=== PATIENT | male | born 1935 | race Caucasian/White ===

== ENCOUNTER 2021-04-25 15:29 | Inpatient (IN) | payer OTHER, MEDICARE ==
[~2021-04-25 15:29] MED LIST: Iopamidol-370 76% 500 ML 1 ML ONE
[2021-04-25] MEDS ORDERED: Fentanyl 100 MCG/2 ML VIAL ONE (15:42)
[2021-04-25] MEDS ORDERED: Ondansetron PF 4 MG/2 ML Vial ONE (15:42)
[2021-04-25 16:01] LABS: #Eosinphils 0.2 thou/uL (0.0-0.7); #Lymphocytes 1.1 thou/uL (1.20-3.40); #Monocytes 0.6 thou/uL (0.11-0.59); %Basophils 0.4 % (0.0-1.0); %Eosinophils 3.1 % (0.0-10.0); %Lymphocytes 16.1 % (21.0-51.0); %Monocytes 8.1 % (0.0-10.0); %Neutrophils 72.3 % (42.0-75.0); Mean Corpuscular HGB CONC 32.9 g/dL (32.0-36.0); Mean Corpuscular Hemoglobin 30.8 pg (27.0-31.0); Mean Corpuscular Volume 93.5 fL (78.0-98.0); Mean Platelet Volume 9.5 fL (7.4-10.4); Platelet Count 129 thou/uL (130-400); RBC Distribution Width 12.9 % (11.5-14.5); Red Blood Cell (RBC) Count 3.91 mill/uL (4.70-6.10); White Blood Cell (WBC) Count 6.9 thou/uL (4.8-10.8)
[2021-04-25 16:13] LABS: INR-International Normal Ratio 2.3; PTT 39.5 sec (22.9-36.1); Prothrombin Time 25.8 sec (12.0-14.7)
[2021-04-25 16:30] LABS: ALT (SGPT) 10 U/L (8-55); AST (SGOT) 18 U/L (5-34); Albumin 3.6 g/dL (3.4-4.8); Alkaline Phosphatase 92 U/L (40-110); Anion Gap 13 mmol/L (10-20); BUN (Urea Nitrogen) 23 mg/dL (8.4-25.7); Bilirubin, Total 0.6 mg/dL (0.2-1.2); Calc. Creatinine Clearance 0 mL/min (70-130); Carbon Dioxide 30 mmol/L (23-31); Chloride 105 mmol/L (98-107); Globulin 2.9 g/dL (2.4-3.5); Glucose 109 mg/dL (83-110); Potassium 3.7 mmol/L (3.5-5.1); Protein, Total 6.5 g/dL (5.8-8.1); Sodium 144 mmol/L (136-145)
[2021-04-25] MEDS ORDERED: Acetaminophen 500 MG TAB ONE (18:08)
[2021-04-25] MEDS ORDERED: Ketorolac Tromethamine 30 MG/ML VIAL ONE (18:08)
[2021-04-25] MEDS ORDERED: Morphine 4 MG/ML VIAL ONE (18:08)
[2021-04-25] MEDS ORDERED: hydrALAZINE 20 MG/ML VIAL SLOW IVP PRN (18:41)
[2021-04-25] MEDS ORDERED: Dextrose 5% in Water 1,000 ML IV PRN (18:41)
[2021-04-25] MEDS ORDERED: Ondansetron PF 4 MG/2 ML Vial IVP PRN (18:41)
[2021-04-25] MEDS ORDERED: Dextrose 50% Abboject 50 ML SYRINGE SLOW IVP PRN (18:41)
[2021-04-25] MEDS ORDERED: Morphine 4 MG/ML VIAL SLOW IVP PRN (18:41)
[2021-04-25 18:43] LABS: Phosphorus 2.7 mg/dL (2.3-4.7)
[2021-04-25 18:44] LABS: SARS-CoV-2 NAA Rapid Test Not Detected (NotDetected)
[2021-04-25] MEDS ORDERED: Cyclobenzaprine 10 MG TAB PO PRN (18:44)
[2021-04-25] MEDS ORDERED: traMADol HCl 50 MG TAB PO PRN (18:44)
[2021-04-25] MEDS ORDERED: Sodium Chloride 0.9% 1,000 ML IV SCH (20:00)
[2021-04-25] MEDS ORDERED: Potassium Phosphate 15 MMOL in Sodium Chloride 0.9% 250 ML 250 ML IVPB SCH (21:00)
[2021-04-25] MEDS: Gabapentin 100 MG CAP PO SCH (21:58)
[2021-04-25] MEDS: Lidocaine 5% Patch TD SCH (21:58)
[2021-04-25] MEDS: Senokot S 8.6-50 MG TAB PO SCH (21:59)
[2021-04-25] MEDS ORDERED: Phytonadione 10 MG/ML AMP SLOW IVP SCH (23:00)
[2021-04-26] MEDS ORDERED: traMADol HCl 50 MG TAB ONE (00:45)
[2021-04-26] MEDS: Acetaminophen 500 MG TAB PO SCH ×5 (00:45→23:56)
[2021-04-26] MEDS: traMADol HCl 50 MG TAB PO SCH ×5 (00:45→23:57)
[2021-04-26] MEDS ORDERED: Acetaminophen 500 MG TAB ONE ×2 (00:45)
[2021-04-26 04:04] LABS: INR-International Normal Ratio 2.1; Prothrombin Time 23.6 sec (12.0-14.7)
[2021-04-26 04:05] LABS: #Eosinphils 0.1 thou/uL (0.0-0.7); #Monocytes 0.8 thou/uL (0.11-0.59); #Neutrophils 8.8 thou/uL (1.40-6.50); %Basophils 0.2 % (0.0-1.0); %Lymphocytes 9.6 % (21.0-51.0); %Monocytes 7.7 % (0.0-10.0); %Neutrophils 81.5 % (42.0-75.0); Hemoglobin 10.9 g/dL (14.0-18.0); Mean Corpuscular HGB CONC 33.1 g/dL (32.0-36.0); Mean Corpuscular Hemoglobin 31.5 pg (27.0-31.0); Mean Corpuscular Volume 95.2 fL (78.0-98.0); Platelet Count 97 thou/uL (130-400); RBC Distribution Width 13.2 % (11.5-14.5); Red Blood Cell (RBC) Count 3.44 mill/uL (4.70-6.10); White Blood Cell (WBC) Count 10.8 thou/uL (4.8-10.8)
[2021-04-26 04:16] LABS: Anion Gap 13 mmol/L (10-20); BUN (Urea Nitrogen) 31 mg/dL (8.4-25.7); Calc. Creatinine Clearance 36 mL/min (70-130); Calcium 8.4 mg/dL (7.8-10.44); Carbon Dioxide 31 mmol/L (23-31); Chloride 107 mmol/L (98-107); Glucose 118 mg/dL (83-110); Phosphorus 5.3 mg/dL (2.3-4.7); Potassium 4.5 mmol/L (3.5-5.1); Sodium 146 mmol/L (136-145)
[2021-04-26] MEDS ORDERED: CEFAZOLIN 2 GM in Premix Bag 1 BAG IVPB SCH (08:15)
[2021-04-26] MEDS: Polyethylene Glycol 3350 17 GM Packet PO SCH (09:00)
[2021-04-26] MEDS: Senokot S 8.6-50 MG TAB PO SCH ×2 (09:00→20:43)
[2021-04-26] MEDS: Famotidine 20 MG TAB PO SCH (09:00)
[2021-04-26] MEDS: Gabapentin 100 MG CAP PO SCH ×3 (09:02→20:42)
[2021-04-26] MEDS: Transdermal Patch Removal TOP SCH (09:37)
[2021-04-26 13:21] LABS: INR-International Normal Ratio 1.4; PTT 44.7 sec (22.9-36.1); Prothrombin Time 17.5 sec (12.0-14.7)
[2021-04-26] MEDS ORDERED: Lidocaine 1% (PF) 30 ML VIAL ONE (14:12)
[2021-04-26] MEDS ORDERED: Furosemide 40 MG/4 ML VIAL ONE (15:07)
[2021-04-26] MEDS ORDERED: Furosemide 40 MG/4 ML VIAL SLOW IVP SCH (15:15)
[2021-04-26] MEDS ORDERED: Morphine 4 MG/ML VIAL SLOW IVP PRN (19:41)
[2021-04-26] MEDS: Lidocaine 5% Patch TD SCH (20:41)
[2021-04-26] MEDS: Sodium Chloride 0.9% 1,000 ML IV SCH (23:57)
[2021-04-27 04:44] LABS: INR-International Normal Ratio 1.3; Prothrombin Time 16.2 sec (12.0-14.7)
[2021-04-27 04:51] LABS: #Eosinphils 0.1 thou/uL (0.0-0.7); #Lymphocytes 1.2 thou/uL (1.20-3.40); #Monocytes 0.9 thou/uL (0.11-0.59); #Neutrophils 11.4 thou/uL (1.40-6.50); %Basophils 0.2 % (0.0-1.0); %Eosinophils 0.6 % (0.0-10.0); %Lymphocytes 8.6 % (21.0-51.0); %Monocytes 6.8 % (0.0-10.0); %Neutrophils 83.8 % (42.0-75.0); Mean Corpuscular Hemoglobin 31.3 pg (27.0-31.0); Mean Corpuscular Volume 97.8 fL (78.0-98.0); Mean Platelet Volume 10.4 fL (7.4-10.4); Platelet Count 80 thou/uL (130-400); RBC Distribution Width 12.9 % (11.5-14.5); Red Blood Cell (RBC) Count 3.18 mill/uL (4.70-6.10); White Blood Cell (WBC) Count 13.6 thou/uL (4.8-10.8)
[2021-04-27 05:07] LABS: Anion Gap 15 mmol/L (10-20); BUN (Urea Nitrogen) 35 mg/dL (8.4-25.7); Calc. Creatinine Clearance 33 mL/min (70-130); Calcium 8.2 mg/dL (7.8-10.44); Carbon Dioxide 26 mmol/L (23-31); Chloride 108 mmol/L (98-107); Glucose 107 mg/dL (83-110); Magnesium 2.2 mg/dL (1.6-2.6); Phosphorus 5.1 mg/dL (2.3-4.7); Potassium 4.4 mmol/L (3.5-5.1); Sodium 145 mmol/L (136-145)
[2021-04-27] MEDS: traMADol HCl 50 MG TAB PO SCH ×3 (06:41→18:39)
[2021-04-27] MEDS: Acetaminophen 500 MG TAB PO SCH ×3 (06:41→18:38)
[2021-04-27] MEDS: Polyethylene Glycol 3350 17 GM Packet PO SCH (08:56)
[2021-04-27] MEDS: Sodium Chloride 0.9% 1,000 ML IV SCH (08:56)
[2021-04-27] MEDS: Senokot S 8.6-50 MG TAB PO SCH ×2 (08:59→21:52)
[2021-04-27] MEDS: Famotidine 20 MG TAB PO SCH (08:59)
[2021-04-27] MEDS: Gabapentin 100 MG CAP PO SCH ×3 (09:00→21:52)
[2021-04-27] MEDS: Transdermal Patch Removal TOP SCH (09:14)
[2021-04-27] MEDS ORDERED: ceFAZolin 2 GM/DEX 5% 100 ML BAG ONE (13:28)
[2021-04-27] MEDS ORDERED: Fentanyl 100 MCG/2 ML VIAL ONE (14:20)
[2021-04-27] MEDS ORDERED: Glycopyrrolate 0.2 MG/ML 5 ML SYRINGE ONE (14:40)
[2021-04-27] MEDS ORDERED: Dexamethasone 20 MG/5 ML VIAL ONE (14:40)
[2021-04-27] MEDS ORDERED: Rocuronium Bromide 10 MG/ML (10ML VIAL) ONE (14:40)
[2021-04-27] MEDS ORDERED: PROPOFOL 200 MG/20 ML VIAL ONE (14:40)
[2021-04-27] MEDS ORDERED: Ondansetron PF 4 MG/2 ML Vial ONE (14:40)
[2021-04-27] MEDS ORDERED: Succinylcholine 200 MG/10 ml SYRINGE FS ONE (14:40)
[2021-04-27] MEDS ORDERED: PHENYLEPHRINE-NS 100 MCG/ML 10 ML SYRINGE ONE (14:40)
[2021-04-27] MEDS ORDERED: SUGAMMADEX SODIUM 200 MG/2 ML VIAL ONE (15:54)
[2021-04-27 20:34] LABS: #Lymphocytes 0.5 thou/uL (1.20-3.40); #Monocytes 0.5 thou/uL (0.11-0.59); #Neutrophils 12.5 thou/uL (1.40-6.50); %Eosinophils 0.3 % (0.0-10.0); %Monocytes 3.5 % (0.0-10.0); %Neutrophils 92.2 % (42.0-75.0); Hemoglobin 10.3 g/dL (14.0-18.0); Mean Corpuscular HGB CONC 31.5 g/dL (32.0-36.0); Mean Corpuscular Hemoglobin 31.3 pg (27.0-31.0); Mean Corpuscular Volume 99.5 fL (78.0-98.0); Mean Platelet Volume 10.6 fL (7.4-10.4); Platelet Count 75 thou/uL (130-400); RBC Distribution Width 13.1 % (11.5-14.5); Red Blood Cell (RBC) Count 3.29 mill/uL (4.70-6.10); White Blood Cell (WBC) Count 13.6 thou/uL (4.8-10.8)
[2021-04-27 21:08] LABS: Anion Gap 17 mmol/L (10-20); BUN (Urea Nitrogen) 39 mg/dL (8.4-25.7); Calc. Creatinine Clearance 32 mL/min (70-130); Calcium 8.2 mg/dL (7.8-10.44); Carbon Dioxide 21 mmol/L (23-31); Chloride 110 mmol/L (98-107); Glucose 118 mg/dL (83-110); Magnesium 2.2 mg/dL (1.6-2.6); Phosphorus 3.6 mg/dL (2.3-4.7); Potassium 4.9 mmol/L (3.5-5.1); Sodium 143 mmol/L (136-145)
[2021-04-27] MEDS ORDERED: Tamsulosin HCl 0.4 MG CAP PO SCH (21:15)
[2021-04-27] MEDS: CEFAZOLIN 2 GM in Sodium Chloride 0.9% 100 ML IVPB SCH (21:51)
[2021-04-27] MEDS: Lidocaine 5% Patch TD SCH (21:53)
[2021-04-27 22:39] LABS: Bilirubin Negative (Negative); Blood, Urine Negative (Negative); Clarity Clear (Clear); Glucose, Urine (Dipstick) Normal (Negative); Ketone, Urine 10 mg/dL (Negative); Leukocyte Negative Leu/uL (Negative); Nitrite Negative (Negative); Protein, Urine (Dipstick) 30 mg/dL (Neg-Trace); Specific Gravity, Urine 1.024 (1.002-1.036); Squamous Epithelial 0-3 HPF (0-3); Urobilinogen Normal mg/dL (Less than 2); pH, Urine 5.5 (5.0-9.0)
[2021-04-27 22:44] LABS: Bacteria/HPF 1+ HPF (None Seen)
[2021-04-27 22:45] LABS: Urine Culture Reflex Yes Yes
[2021-04-28] MEDS: Acetaminophen 500 MG TAB PO SCH ×2 (03:17→05:56)
[2021-04-28] MEDS: traMADol HCl 50 MG TAB PO SCH ×2 (03:17→05:56)
[2021-04-28 04:14] LABS: INR-International Normal Ratio 1.2; PTT 42.2 sec (22.9-36.1); Prothrombin Time 15.5 sec (12.0-14.7)
[2021-04-28 04:25] LABS: Anion Gap 16 mmol/L (10-20); BUN (Urea Nitrogen) 49 mg/dL (8.4-25.7); Calc. Creatinine Clearance 29 mL/min (70-130); Calcium 8.8 mg/dL (7.8-10.44); Carbon Dioxide 24 mmol/L (23-31); Chloride 110 mmol/L (98-107); Glucose 131 mg/dL (83-110); Magnesium 2.1 mg/dL (1.6-2.6); Phosphorus 3.7 mg/dL (2.3-4.7); Sodium 145 mmol/L (136-145)
[2021-04-28] MEDS: CEFAZOLIN 2 GM in Sodium Chloride 0.9% 100 ML IVPB SCH (05:57)
[2021-04-28 06:44] LABS: #Lymphocytes 0.6 thou/uL (1.20-3.40); #Monocytes 0.6 thou/uL (0.11-0.59); #Neutrophils 11.9 thou/uL (1.40-6.50); %Eosinophils 0.2 % (0.0-10.0); %Lymphocytes 4.7 % (21.0-51.0); %Monocytes 4.8 % (0.0-10.0); %Neutrophils 90.2 % (42.0-75.0); Hemoglobin 9.7 g/dL (14.0-18.0); Mean Corpuscular Hemoglobin 31.5 pg (27.0-31.0); Mean Corpuscular Volume 98.6 fL (78.0-98.0); Mean Platelet Volume 10.3 fL (7.4-10.4); Platelet Count 75 thou/uL (130-400); RBC Distribution Width 13.1 % (11.5-14.5); Red Blood Cell (RBC) Count 3.09 mill/uL (4.70-6.10); White Blood Cell (WBC) Count 13.2 thou/uL (4.8-10.8)
[2021-04-28 08:07] LABS: Band 18 % (5-11); Lymphocytes 6 % (21-51); MDiff Complete? YES; Monocytes 6 % (0-10); Neutrophil 70 % (42-75); Platelet Morphology Comment Appears Decreased; RBC Morphology Normal
[2021-04-28] MEDS ORDERED: Acetaminophen/Codeine 30-300mg Tablet PO PRN (08:52)
[2021-04-28] MEDS ORDERED: traMADol HCl 50 MG TAB PO SCH (09:00)
[2021-04-28] MEDS: Enoxaparin Sodium 30 MG/0.3 ML SYRINGE SC SCH (09:24)
[2021-04-28] MEDS: Gabapentin 100 MG CAP PO SCH ×3 (09:24→21:45)
[2021-04-28] MEDS: Senokot S 8.6-50 MG TAB PO SCH ×2 (09:24→21:45)
[2021-04-28] MEDS: Famotidine 20 MG TAB PO SCH (09:24)
[2021-04-28] MEDS: Polyethylene Glycol 3350 17 GM Packet PO SCH (09:25)
[2021-04-28] MEDS ORDERED: Furosemide 40 MG/4 ML VIAL SLOW IVP SCH (09:45)
[2021-04-28] MEDS: Acetaminophen/Codeine 30-300mg Tablet PO SCH ×4 (11:52→23:49)
[2021-04-28] MEDS: Acetaminophen 325 MG TAB PO SCH ×3 (11:52→23:17)
[2021-04-28] MEDS ORDERED: Warfarin Sodium 3 MG TAB PO SCH (17:00)
[2021-04-28] MEDS: Lidocaine 5% Patch TD SCH (21:45)
[2021-04-28] MEDS: Tamsulosin HCl 0.4 MG CAP PO SCH (21:45)
[2021-04-28] MEDS ORDERED: Hydrocortisone Sod Succ/PF 100 mg/2 ml Vial IVP SCH (22:15)
[2021-04-28] MEDS: Hydrocortisone Sod Succ/PF 100 mg/2 ml Vial IVP SCH (23:01)
[2021-04-29] MEDS: Hydrocortisone Sod Succ/PF 100 mg/2 ml Vial IVP SCH ×4 (00:45→19:25)
[2021-04-29 04:31] LABS: #Lymphocytes 0.5 thou/uL (1.20-3.40); #Monocytes 0.7 thou/uL (0.11-0.59); #Neutrophils 10.7 thou/uL (1.40-6.50); %Eosinophils 0.3 % (0.0-10.0); %Lymphocytes 3.9 % (21.0-51.0); %Neutrophils 89.8 % (42.0-75.0); Hemoglobin 9.4 g/dL (14.0-18.0); Mean Corpuscular HGB CONC 32.8 g/dL (32.0-36.0); Mean Corpuscular Hemoglobin 31.7 pg (27.0-31.0); Mean Corpuscular Volume 96.6 fL (78.0-98.0); Mean Platelet Volume 10.6 fL (7.4-10.4); Platelet Count 78 thou/uL (130-400); RBC Distribution Width 13.1 % (11.5-14.5); Red Blood Cell (RBC) Count 2.96 mill/uL (4.70-6.10); White Blood Cell (WBC) Count 11.9 thou/uL (4.8-10.8)
[2021-04-29 05:09] LABS: Anion Gap 16 mmol/L (10-20); BUN (Urea Nitrogen) 61 mg/dL (8.4-25.7); Calc. Creatinine Clearance 29 mL/min (70-130); Calcium 8.9 mg/dL (7.8-10.44); Carbon Dioxide 23 mmol/L (23-31); Chloride 111 mmol/L (98-107); Glucose 165 mg/dL (83-110); Magnesium 2.5 mg/dL (1.6-2.6); Phosphorus 2.8 mg/dL (2.3-4.7); Sodium 145 mmol/L (136-145)
[2021-04-29] MEDS: Acetaminophen 325 MG TAB PO SCH ×3 (06:16→17:02)
[2021-04-29] MEDS: Acetaminophen/Codeine 30-300mg Tablet PO SCH ×2 (06:16→14:31)
[2021-04-29] MEDS: Polyethylene Glycol 3350 17 GM Packet PO SCH (08:41)
[2021-04-29] MEDS: Gabapentin 100 MG CAP PO SCH ×3 (08:41→22:03)
[2021-04-29] MEDS: Enoxaparin Sodium 30 MG/0.3 ML SYRINGE SC SCH (08:41)
[2021-04-29] MEDS: Senokot S 8.6-50 MG TAB PO SCH ×2 (08:42→22:03)
[2021-04-29] MEDS: Famotidine 20 MG TAB PO SCH (08:42)
[2021-04-29 10:46] LABS: INR-International Normal Ratio 1.2; Prothrombin Time 15.3 sec (12.0-14.7)
[2021-04-29] MEDS ORDERED: Acetaminophen/Codeine 30-300mg Tablet PO PRN (15:11)
[2021-04-29] MEDS ORDERED: Warfarin Sodium 3 MG TAB PO SCH (17:00)
[2021-04-29] MEDS: Lidocaine 5% Patch TD SCH (22:02)
[2021-04-29] MEDS: Tamsulosin HCl 0.4 MG CAP PO SCH (22:03)
[2021-04-30] MEDS: Acetaminophen 325 MG TAB PO SCH ×4 (00:09→18:22)
[2021-04-30] MEDS: Hydrocortisone Sod Succ/PF 100 mg/2 ml Vial IVP SCH ×4 (00:52→18:38)
[2021-04-30 06:45] LABS: INR-International Normal Ratio 1.3; Prothrombin Time 16.4 sec (12.0-14.7)
[2021-04-30 06:55] LABS: Anion Gap 18 mmol/L (10-20); BUN (Urea Nitrogen) 73 mg/dL (8.4-25.7); Calc. Creatinine Clearance 28 mL/min (70-130); Calcium 9.4 mg/dL (7.8-10.44); Carbon Dioxide 27 mmol/L (23-31); Chloride 108 mmol/L (98-107); Glucose 147 mg/dL (83-110); Magnesium 2.8 mg/dL (1.6-2.6); Phosphorus 2.5 mg/dL (2.3-4.7); Potassium 5.1 mmol/L (3.5-5.1); Sodium 147 mmol/L (136-145)
[2021-04-30 07:03] LABS: Hemoglobin 10.9 g/dL (14.0-18.0); Mean Corpuscular HGB CONC 33.3 g/dL (32.0-36.0); Mean Corpuscular Hemoglobin 32.5 pg (27.0-31.0); Mean Corpuscular Volume 97.7 fL (78.0-98.0); RBC Distribution Width 13.3 % (11.5-14.5); Red Blood Cell (RBC) Count 3.36 mill/uL (4.70-6.10)
[2021-04-30 07:41] LABS: Band 12 % (5-11); Lymphocytes 9 % (21-51); MDiff Complete? YES; Mean Platelet Volume 10.8 fL (7.4-10.4); Monocytes 6 % (0-10); Neutrophil 73 % (42-75); Platelet Count 110 thou/uL (130-400); Platelet Morphology Comment Appears Decreased; Polychromasia SLIGHT = 2-3 cells (100X) (0-2/hpf); White Blood Cell (WBC) Count 8.1 thou/uL (4.8-10.8)
[2021-04-30 08:48] LABS: Actual Bicarbonate (HCO3a) 27.6 mEq/L (22-28); Base Excess (BEa) 0.1 mEq/L (-2.0 to +3.0); Calcium, Ionized (arterial) 1.27 mmol/L (1.12-1.30); Carboxyhemoglobin (COHb) 0.1 gm% (0.0-3.0); Hemoglobin (Hb) 10.8 g/dL (14.0-18.0); Potassium - ABG Lab 4.73 mmol/L (3.70-5.30); pH, Arterial 7.28 (7.35-7.45)
[2021-04-30 08:49] LABS: Puncture Site RRA
[2021-04-30] MEDS ORDERED: Furosemide 20 MG/2 ML VIAL SLOW IVP SCH (09:00)
[2021-04-30] MEDS: Famotidine 20 MG TAB PO SCH (09:04)
[2021-04-30] MEDS: Polyethylene Glycol 3350 17 GM Packet PO SCH (09:04)
[2021-04-30] MEDS: Gabapentin 100 MG CAP PO SCH ×3 (09:04→21:38)
[2021-04-30] MEDS: Senokot S 8.6-50 MG TAB PO SCH ×2 (09:04→21:37)
[2021-04-30] MEDS ORDERED: Furosemide 40 MG/4 ML VIAL SLOW IVP SCH (11:30)
[2021-04-30] MEDS ORDERED: Metolazone 5 MG TAB PO SCH (11:30)
[2021-04-30] MEDS: Enoxaparin Sodium 30 MG/0.3 ML SYRINGE SC SCH (12:59)
[2021-04-30] MEDS ORDERED: Propofol 1,000 MG/100 ML VIAL IV ONE (13:25)
[2021-04-30] MEDS ORDERED: Rocuronium Bromide 10 MG/ML (10ML VIAL) ONE (14:15)
[2021-04-30] MEDS ORDERED: Propofol BOLUS 1,000 MG/100 ML VIAL IV PRN (14:45)
[2021-04-30] MEDS ORDERED: DISCONTINUE PREVIOUS NARCOTIC PAIN MEDICATIONS AND BENZODIAZEPINES FS SCH (14:45)
[2021-04-30] MEDS ORDERED: Lorazepam 2 MG/ML VIAL SLOW IVP PRN (14:45)
[2021-04-30] MEDS ORDERED: Fentanyl BOLUS 250 ML IVPB PRN (14:45)
[2021-04-30] MEDS ORDERED: Fentanyl CADD 100 ML IV SCH (14:45)
[2021-04-30] MEDS ORDERED: Ventilator Sedation Protocol 1 EACH FS SCH (14:45)
[2021-04-30] MEDS ORDERED: Propofol 1,000 MG/100 ML VIAL IV PRN (14:45)
[2021-04-30 14:46] LABS: CO2 Tension 43.8 mmHg (35.0-45.0); Calcium, Ionized (arterial) 1.22 mmol/L (1.12-1.30); Carboxyhemoglobin (COHb) 0.3 gm% (0.0-3.0); Hemoglobin (Hb) 9.5 g/dL (14.0-18.0); O2 Tension (PaO2), arterial 61.1 mmHg (> 60.0); Potassium - ABG Lab 4.67 mmol/L (3.70-5.30); pH, Arterial 7.41 (7.35-7.45)
[2021-04-30 14:47] LABS: Puncture Site RRA
[2021-04-30] MEDS: Warfarin Sodium 2 MG TAB PO SCH (18:21)
[2021-04-30] MEDS: Carvedilol 25 MG TAB PO SCH (21:38)
[2021-04-30] MEDS: Tamsulosin HCl 0.4 MG CAP PO SCH (21:38)
[2021-04-30] MEDS: Sotalol HCl 80 MG TAB PO SCH (21:40)
[2021-04-30] MEDS: Lidocaine 5% Patch TD SCH (22:00)
[2021-04-30] MEDS ORDERED: DOPamine 400 MG/D5W 250 ML 250 ML IVPB SCH (23:45)
[2021-05-01] MEDS: Hydrocortisone Sod Succ/PF 100 mg/2 ml Vial IVP SCH ×4 (00:41→17:21)
[2021-05-01] MEDS: Acetaminophen 325 MG TAB PO SCH ×4 (00:41→17:21)
[2021-05-01 00:48] LABS: Band 22 % (5-11); Hemoglobin 10.6 g/dL (14.0-18.0); Hypochromia SLIGHT = 6-15 cells (100X) (0-5/hpf); Lymphocytes 13 % (21-51); MDiff Complete? YES; Mean Corpuscular HGB CONC 30.9 g/dL (32.0-36.0); Mean Corpuscular Hemoglobin 30.3 pg (27.0-31.0); Mean Platelet Volume 10.5 fL (7.4-10.4); Monocytes 5 % (0-10); Neutrophil 60 % (42-75); Nucleated RBC 1 % (0); Platelet Count 91 thou/uL (130-400); Platelet Morphology Comment Appears Decreased; RBC Distribution Width 13.3 % (11.5-14.5); Red Blood Cell (RBC) Count 3.48 mill/uL (4.70-6.10); White Blood Cell (WBC) Count 5.5 thou/uL (4.8-10.8)
[2021-05-01 00:54] LABS: Anion Gap 18 mmol/L (10-20); BUN (Urea Nitrogen) 88 mg/dL (8.4-25.7); Calc. Creatinine Clearance 30 mL/min (70-130); Carbon Dioxide 25 mmol/L (23-31); Chloride 113 mmol/L (98-107); Glucose 130 mg/dL (83-110); Magnesium 2.4 mg/dL (1.6-2.6); Potassium 4.9 mmol/L (3.5-5.1); Sodium 151 mmol/L (136-145)
[2021-05-01 01:03] LABS: Phosphorus 1.1 mg/dL (2.3-4.7)
[2021-05-01 01:17] LABS: Actual Bicarbonate (HCO3a) 24.2 mEq/L (22-28); Base Excess (BEa) 0.7 mEq/L (-2.0 to +3.0); Calcium, Ionized (arterial) 1.23 mmol/L (1.12-1.30); Carboxyhemoglobin (COHb) 0.3 gm% (0.0-3.0); Hemoglobin (Hb) 9.3 g/dL (14.0-18.0); pH, Arterial 7.47 (7.35-7.45)
[2021-05-01 01:18] LABS: O2 Tension (PaO2), arterial 45.9 mmHg (> 60.0)
[2021-05-01 01:21] LABS: Puncture Site RBA
[2021-05-01] MEDS ORDERED: Potassium Phosphate 15 MMOL in Sodium Chloride 0.9% 250 ML 250 ML IVPB SCH (01:30)
[2021-05-01] MEDS ORDERED: Albumin 25% 25 GM/100 ML BOT IVPB SCH (02:30)
[2021-05-01 03:40] LABS: Troponin I 0.122 ng/mL (< 0.028)
[2021-05-01 06:40] LABS: Band 14 % (5-11); Hemoglobin 8.6 g/dL (14.0-18.0); Hypochromia SLIGHT = 6-15 cells (100X) (0-5/hpf); Lymphocytes 9 % (21-51); MDiff Complete? YES; Mean Corpuscular HGB CONC 33.7 g/dL (32.0-36.0); Mean Corpuscular Hemoglobin 32.2 pg (27.0-31.0); Mean Corpuscular Volume 95.4 fL (78.0-98.0); Mean Platelet Volume 10.8 fL (7.4-10.4); Monocytes 10 % (0-10); Neutrophil 66 % (42-75); Platelet Count 94 thou/uL (130-400); Platelet Morphology Comment Appears Decreased; RBC Distribution Width 13.2 % (11.5-14.5); Reactive Lymphocytes 1 % (0-10); Red Blood Cell (RBC) Count 2.66 mill/uL (4.70-6.10)
[2021-05-01 06:56] LABS: Anion Gap 15 mmol/L (10-20); BUN (Urea Nitrogen) 91 mg/dL (8.4-25.7); Calc. Creatinine Clearance 30 mL/min (70-130); Calcium 8.9 mg/dL (7.8-10.44); Carbon Dioxide 26 mmol/L (23-31); Chloride 114 mmol/L (98-107); Glucose 168 mg/dL (83-110); Magnesium 2.3 mg/dL (1.6-2.6); Phosphorus 1.4 mg/dL (2.3-4.7); Potassium 4.5 mmol/L (3.5-5.1); Sodium 150 mmol/L (136-145)
[2021-05-01] MEDS ORDERED: Furosemide 40 MG/4 ML VIAL SLOW IVP SCH (09:00)
[2021-05-01] MEDS: Famotidine 20 MG TAB PO SCH (09:14)
[2021-05-01] MEDS: Metolazone 2.5 MG TAB PO SCH (09:14)
[2021-05-01] MEDS: Gabapentin 100 MG CAP PO SCH ×3 (09:15→21:21)
[2021-05-01] MEDS: Senokot S 8.6-50 MG TAB PO SCH ×2 (09:15→21:20)
[2021-05-01] MEDS: Polyethylene Glycol 3350 17 GM Packet PO SCH (09:15)
[2021-05-01 09:24] LABS: Troponin I 0.114 ng/mL (< 0.028)
[2021-05-01] MEDS: Carvedilol 25 MG TAB PO SCH ×2 (09:34→21:21)
[2021-05-01] MEDS: Sotalol HCl 80 MG TAB PO SCH ×2 (09:34→21:22)
[2021-05-01] MEDS: Enoxaparin Sodium 30 MG/0.3 ML SYRINGE SC SCH (09:34)
[2021-05-01 16:31] LABS: Actual Bicarbonate (HCO3a) 27.7 mEq/L (22-28); Base Excess (BEa) 4.8 mEq/L (-2.0 to +3.0); CO2 Tension 33.8 mmHg (35.0-45.0); Calcium, Ionized (arterial) 1.18 mmol/L (1.12-1.30); Carboxyhemoglobin (COHb) 0.1 gm% (0.0-3.0); Hemoglobin (Hb) 8.3 g/dL (14.0-18.0); Potassium - ABG Lab 3.58 mmol/L (3.70-5.30); pH, Arterial 7.53 (7.35-7.45)
[2021-05-01 16:32] LABS: Puncture Site RRA
[2021-05-01] MEDS: Warfarin Sodium 2 MG TAB PO SCH (17:21)
[2021-05-01] MEDS: Tamsulosin HCl 0.4 MG CAP PO SCH (21:21)
[2021-05-01] MEDS: Lidocaine 5% Patch TD SCH (22:23)
[2021-05-02] MEDS: Acetaminophen 325 MG TAB PO SCH ×4 (00:05→16:30)
[2021-05-02] MEDS: Hydrocortisone Sod Succ/PF 100 mg/2 ml Vial IVP SCH ×4 (00:05→16:30)
[2021-05-02 05:11] LABS: INR-International Normal Ratio 2.1; Prothrombin Time 23.7 sec (12.0-14.7)
[2021-05-02 05:29] LABS: Anion Gap 13 mmol/L (10-20); BUN (Urea Nitrogen) 91 mg/dL (8.4-25.7); Calc. Creatinine Clearance 32 mL/min (70-130); Calcium 8.5 mg/dL (7.8-10.44); Carbon Dioxide 30 mmol/L (23-31); Chloride 113 mmol/L (98-107); Glucose 179 mg/dL (83-110); Magnesium 2.6 mg/dL (1.6-2.6); Potassium 3.7 mmol/L (3.5-5.1); Sodium 152 mmol/L (136-145)
[2021-05-02 05:33] LABS: Phosphorus 1.2 mg/dL (2.3-4.7)
[2021-05-02 05:37] LABS: Band 12 % (5-11); Hemoglobin 8.6 g/dL (14.0-18.0); Lymphocytes 7 % (21-51); MDiff Complete? YES; Mean Corpuscular HGB CONC 33.1 g/dL (32.0-36.0); Mean Corpuscular Hemoglobin 31.4 pg (27.0-31.0); Mean Corpuscular Volume 94.9 fL (78.0-98.0); Mean Platelet Volume 10.9 fL (7.4-10.4); Metamyelocyte 1 % (0-0); Monocytes 2 % (0-10); Neutrophil 78 % (42-75); Nucleated RBC 2 % (0); Platelet Count 121 thou/uL (130-400); Platelet Morphology Comment Appears Decreased; RBC Distribution Width 13.7 % (11.5-14.5); RBC Morphology Normal; Red Blood Cell (RBC) Count 2.73 mill/uL (4.70-6.10); White Blood Cell (WBC) Count 9.1 thou/uL (4.8-10.8)
[2021-05-02] MEDS ORDERED: Potassium Phosphate 30 MMOL in Sodium Chloride 0.9% 250 ML 250 ML IVPB SCH (06:30)
[2021-05-02] MEDS: Polyethylene Glycol 3350 17 GM Packet PO SCH (07:47)
[2021-05-02] MEDS: Enoxaparin Sodium 30 MG/0.3 ML SYRINGE SC SCH (07:47)
[2021-05-02] MEDS: Gabapentin 100 MG CAP PO SCH ×3 (07:47→20:09)
[2021-05-02] MEDS: Senokot S 8.6-50 MG TAB PO SCH ×2 (07:47→20:11)
[2021-05-02] MEDS: Carvedilol 25 MG TAB PO SCH ×2 (07:47→20:11)
[2021-05-02] MEDS: Famotidine 20 MG TAB PO SCH (07:47)
[2021-05-02] MEDS: Sotalol HCl 80 MG TAB PO SCH ×2 (07:49→20:10)
[2021-05-02] MEDS: Metolazone 2.5 MG TAB PO SCH (07:49)
[2021-05-02] MEDS: Morphine 4 MG/ML VIAL SLOW IVP PRN (12:40)
[2021-05-02] MEDS: Warfarin Sodium 2 MG TAB PO SCH (15:38)
[2021-05-02] MEDS ORDERED: Warfarin Sodium 1.5 MG TAB PO SCH (17:00)
[2021-05-02 18:11] LABS: Chloride 116 mmol/L (98-107); Potassium 4.2 mmol/L (3.5-5.1); Sodium 156 mmol/L (136-145)
[2021-05-02 18:12] LABS: Calcium 8.6 mg/dL (7.8-10.44); Glucose 168 mg/dL (83-110)
[2021-05-02 18:14] LABS: Anion Gap 19 mmol/L (10-20); Carbon Dioxide 25 mmol/L (23-31)
[2021-05-02 18:16] LABS: Calc. Creatinine Clearance 34 mL/min (70-130)
[2021-05-02 18:17] LABS: BUN (Urea Nitrogen) 101 mg/dL (8.4-25.7)
[2021-05-02 18:18] LABS: Magnesium 2.5 mg/dL (1.6-2.6)
[2021-05-02 18:26] LABS: Phosphorus 3.3 mg/dL (2.3-4.7)
[2021-05-02] MEDS: Lidocaine 5% Patch TD SCH (20:09)
[2021-05-02] MEDS: Tamsulosin HCl 0.4 MG CAP PO SCH (20:11)
[2021-05-03] MEDS: Hydrocortisone Sod Succ/PF 100 mg/2 ml Vial IVP SCH ×2 (01:35→06:02)
[2021-05-03] MEDS: Acetaminophen 325 MG TAB PO SCH ×4 (01:35→17:07)
[2021-05-03 03:36] LABS: #Lymphocytes 0.7 thou/uL (1.20-3.40); #Monocytes 0.9 thou/uL (0.11-0.59); #Neutrophils 7.9 thou/uL (1.40-6.50); %Eosinophils 0.1 % (0.0-10.0); %Lymphocytes 7.5 % (21.0-51.0); %Monocytes 9.7 % (0.0-10.0); %Neutrophils 82.7 % (42.0-75.0); Hemoglobin 7.9 g/dL (14.0-18.0); Mean Corpuscular HGB CONC 33.1 g/dL (32.0-36.0); Mean Corpuscular Hemoglobin 31.7 pg (27.0-31.0); Mean Platelet Volume 10.5 fL (7.4-10.4); Platelet Count 123 thou/uL (130-400); RBC Distribution Width 13.9 % (11.5-14.5); Red Blood Cell (RBC) Count 2.48 mill/uL (4.70-6.10); White Blood Cell (WBC) Count 9.6 thou/uL (4.8-10.8)
[2021-05-03 03:44] LABS: INR-International Normal Ratio 2.2; Prothrombin Time 24.9 sec (12.0-14.7)
[2021-05-03 04:37] LABS: Anion Gap 15 mmol/L (10-20); BUN (Urea Nitrogen) 89 mg/dL (8.4-25.7); Calc. Creatinine Clearance 37 mL/min (70-130); Calcium 8.2 mg/dL (7.8-10.44); Carbon Dioxide 29 mmol/L (23-31); Chloride 115 mmol/L (98-107); Glucose 179 mg/dL (83-110); Magnesium 2.5 mg/dL (1.6-2.6); Phosphorus 2.6 mg/dL (2.3-4.7); Potassium 3.6 mmol/L (3.5-5.1); Sodium 155 mmol/L (136-145)
[2021-05-03] MEDS: Sotalol HCl 80 MG TAB PO SCH ×2 (07:12→21:19)
[2021-05-03] MEDS: Gabapentin 100 MG CAP PO SCH ×3 (07:13→21:20)
[2021-05-03] MEDS: Carvedilol 25 MG TAB PO SCH ×2 (07:13→21:20)
[2021-05-03] MEDS: Hydrochlorothiazide 25 MG TAB PO SCH (07:13)
[2021-05-03] MEDS: Famotidine 20 MG TAB PO SCH (07:13)
[2021-05-03] MEDS: Metolazone 2.5 MG TAB PO SCH (07:13)
[2021-05-03] MEDS: Polyethylene Glycol 3350 17 GM Packet PO SCH (07:14)
[2021-05-03] MEDS: Senokot S 8.6-50 MG TAB PO SCH ×2 (07:14→21:21)
[2021-05-03] MEDS ORDERED: Potassium Phosphate 30 MMOL in Sodium Chloride 0.9% 250 ML 250 ML IVPB SCH (07:30)
[2021-05-03] MEDS: Cefepime 1 GM in Sodium Chloride 0.9% 100 ML IVPB SCH ×2 (09:08→21:18)
[2021-05-03] MEDS: Saccharomyces boulardii 250 MG CAP PO SCH (09:09)
[2021-05-03] MEDS: Metamucil PACK PER TUBE SCH (09:22)
[2021-05-03 12:08] LABS: SARS-CoV-2 PCR by NAA Not Detected (NotDetected)
[2021-05-03] MEDS: Warfarin Sodium 2 MG TAB PO SCH (15:39)
[2021-05-03] MEDS: Ferrous Sulfate 325 MG TAB PO SCH (17:07)
[2021-05-03] MEDS: Tamsulosin HCl 0.4 MG CAP PO SCH (21:20)
[2021-05-03] MEDS: Ascorbic Acid 500 mg Chewable Tablet PO SCH (21:20)
[2021-05-03] MEDS: Lidocaine 5% Patch TD SCH (21:57)
[2021-05-04] MEDS: Acetaminophen 325 MG TAB PO SCH ×5 (00:10→23:55)
[2021-05-04] MEDS: Morphine 4 MG/ML VIAL SLOW IVP PRN (03:05)
[2021-05-04 05:20] LABS: INR-International Normal Ratio 2.6; Prothrombin Time 28.5 sec (12.0-14.7)
[2021-05-04 05:24] LABS: Anion Gap 15 mmol/L (10-20); BUN (Urea Nitrogen) 93 mg/dL (8.4-25.7); Calc. Creatinine Clearance 41 mL/min (70-130); Calcium 8.3 mg/dL (7.8-10.44); Carbon Dioxide 29 mmol/L (23-31); Chloride 116 mmol/L (98-107); Glucose 156 mg/dL (83-110); Magnesium 2.4 mg/dL (1.6-2.6); Potassium 3.5 mmol/L (3.5-5.1); Sodium 156 mmol/L (136-145)
[2021-05-04 05:44] LABS: Band 9 % (5-11); Eosinophils 1 % (0-10); Hemoglobin 7.6 g/dL (14.0-18.0); Hypochromia SLIGHT = 6-15 cells (100X) (0-5/hpf); Lymphocytes 6 % (21-51); MDiff Complete? YES; Mean Corpuscular HGB CONC 31.3 g/dL (32.0-36.0); Mean Corpuscular Hemoglobin 30.5 pg (27.0-31.0); Mean Corpuscular Volume 97.5 fL (78.0-98.0); Mean Platelet Volume 10.3 fL (7.4-10.4); Monocytes 6 % (0-10); Neutrophil 77 % (42-75); Platelet Count 149 thou/uL (130-400); Platelet Morphology Comment Appears Adequate; Reactive Lymphocytes 1 % (0-10); Red Blood Cell (RBC) Count 2.48 mill/uL (4.70-6.10); White Blood Cell (WBC) Count 12.9 thou/uL (4.8-10.8)
[2021-05-04] MEDS ORDERED: Potassium Phosphate 15 MMOL in Sodium Chloride 0.9% 250 ML 250 ML IVPB SCH (07:30)
[2021-05-04] MEDS: Cefepime 1 GM in Sodium Chloride 0.9% 100 ML IVPB SCH (07:42)
[2021-05-04] MEDS: Carvedilol 25 MG TAB PO SCH ×2 (07:43→21:36)
[2021-05-04] MEDS: Senokot S 8.6-50 MG TAB PO SCH ×2 (07:43→21:37)
[2021-05-04] MEDS: Gabapentin 100 MG CAP PO SCH ×3 (07:43→21:36)
[2021-05-04] MEDS: Ferrous Sulfate 325 MG TAB PO SCH ×2 (07:43→16:54)
[2021-05-04] MEDS: Ascorbic Acid 500 mg Chewable Tablet PO SCH ×2 (07:43→21:37)
[2021-05-04] MEDS: Famotidine 20 MG TAB PO SCH (07:43)
[2021-05-04] MEDS: Hydrochlorothiazide 25 MG TAB PO SCH (07:43)
[2021-05-04] MEDS: Metamucil PACK PER TUBE SCH (07:44)
[2021-05-04] MEDS: Polyethylene Glycol 3350 17 GM Packet PO SCH (07:44)
[2021-05-04] MEDS: Saccharomyces boulardii 250 MG CAP PO SCH (07:44)
[2021-05-04] MEDS: Sotalol HCl 80 MG TAB PO SCH ×2 (07:45→21:37)
[2021-05-04] MEDS: Furosemide 80 MG TAB PO SCH (08:43)
[2021-05-04] MEDS: Warfarin Sodium 2 MG TAB PO SCH ×2 (16:54→16:55)
[2021-05-04] MEDS: Tamsulosin HCl 0.4 MG CAP PO SCH (21:37)
[2021-05-04] MEDS: Lidocaine 5% Patch TD SCH (21:54)
[2021-05-05 03:59] LABS: Chloride 115 mmol/L (98-107); Potassium 3.5 mmol/L (3.5-5.1); Sodium 160 mmol/L (136-145)
[2021-05-05 04:00] LABS: Calcium 7.8 mg/dL (7.8-10.44); Glucose 162 mg/dL (83-110)
[2021-05-05 04:02] LABS: Carbon Dioxide 33 mmol/L (23-31)
[2021-05-05 04:03] LABS: Calc. Creatinine Clearance 38 mL/min (70-130)
[2021-05-05 04:04] LABS: BUN (Urea Nitrogen) 93 mg/dL (8.4-25.7)
[2021-05-05 04:05] LABS: Magnesium 2.5 mg/dL (1.6-2.6)
[2021-05-05 04:06] LABS: INR-International Normal Ratio 2.7; Phosphorus 3.8 mg/dL (2.3-4.7); Prothrombin Time 29.1 sec (12.0-14.7)
[2021-05-05 04:18] LABS: Anion Gap 16 mmol/L (10-20)
[2021-05-05 05:14] LABS: Band 11 % (5-11); Eosinophils 3 % (0-10); Hemoglobin 7.5 g/dL (14.0-18.0); Lymphocytes 7 % (21-51); MDiff Complete? YES; Macrocytosis SLIGHT = 6-15 cells (100X) (0-5/hpf); Mean Corpuscular Hemoglobin 31.6 pg (27.0-31.0); Mean Corpuscular Volume 98.5 fL (78.0-98.0); Mean Platelet Volume 10.5 fL (7.4-10.4); Monocytes 11 % (0-10); Neutrophil 64 % (42-75); Platelet Count 149 thou/uL (130-400); Platelet Morphology Comment Appears Adequate; Reactive Lymphocytes 4 % (0-10); Red Blood Cell (RBC) Count 2.36 mill/uL (4.70-6.10); White Blood Cell (WBC) Count 12.8 thou/uL (4.8-10.8)
[2021-05-05] MEDS: Acetaminophen 325 MG TAB PO SCH ×3 (05:16→19:36)
[2021-05-05] MEDS ORDERED: Potassium Phosphate 30 MMOL in Sodium Chloride 0.9% 250 ML 250 ML IVPB SCH (07:15)
[2021-05-05] MEDS: Ferrous Sulfate 325 MG TAB PO SCH ×2 (08:21→19:35)
[2021-05-05] MEDS: Senokot S 8.6-50 MG TAB PO SCH ×2 (08:25→21:04)
[2021-05-05] MEDS: Saccharomyces boulardii 250 MG CAP PO SCH (08:26)
[2021-05-05] MEDS: Famotidine 20 MG TAB PO SCH (08:26)
[2021-05-05] MEDS: Gabapentin 100 MG CAP PO SCH ×3 (08:26→21:05)
[2021-05-05] MEDS: Ascorbic Acid 500 mg Chewable Tablet PO SCH ×2 (08:26→21:04)
[2021-05-05] MEDS: Polyethylene Glycol 3350 17 GM Packet PO SCH (08:28)
[2021-05-05] MEDS: Dextrose 5% in Water 1,000 ML IV SCH (09:00)
[2021-05-05] MEDS: Furosemide 80 MG TAB PO SCH (09:02)
[2021-05-05] MEDS: Hydrochlorothiazide 25 MG TAB PO SCH (10:53)
[2021-05-05] MEDS: Metamucil PACK PER TUBE SCH (10:53)
[2021-05-05] MEDS: Sotalol HCl 80 MG TAB PO SCH ×2 (11:55→21:06)
[2021-05-05] MEDS: Carvedilol 25 MG TAB PO SCH ×2 (14:14→21:04)
[2021-05-05] MEDS: Warfarin Sodium 2 MG TAB PO SCH ×2 (19:50→20:00)
[2021-05-05] MEDS: Lidocaine 5% Patch TD SCH (21:05)
[2021-05-05] MEDS: Tamsulosin HCl 0.4 MG CAP PO SCH (21:05)
[2021-05-06] MEDS: Acetaminophen 325 MG TAB PO SCH ×4 (00:07→17:24)
[2021-05-06] MEDS: Dextrose 5% in Water 1,000 ML IV SCH (04:02)
[2021-05-06 04:32] LABS: Calcium 8.1 mg/dL (7.8-10.44); Chloride 109 mmol/L (98-107); Potassium 3.8 mmol/L (3.5-5.1); Sodium 151 mmol/L (136-145)
[2021-05-06 04:37] LABS: Glucose 156 mg/dL (83-110)
[2021-05-06 04:38] LABS: #Eosinphils 0.3 thou/uL (0.0-0.7); #Neutrophils 10.8 thou/uL (1.40-6.50); %Basophils 0.1 % (0.0-1.0); %Eosinophils 2.6 % (0.0-10.0); %Lymphocytes 7.4 % (21.0-51.0); %Monocytes 7.4 % (0.0-10.0); %Neutrophils 82.5 % (42.0-75.0); Hemoglobin 7.4 g/dL (14.0-18.0); Mean Corpuscular HGB CONC 31.7 g/dL (32.0-36.0); Mean Corpuscular Hemoglobin 31.5 pg (27.0-31.0); Mean Corpuscular Volume 99.1 fL (78.0-98.0); Mean Platelet Volume 10.4 fL (7.4-10.4); Platelet Count 186 thou/uL (130-400); Red Blood Cell (RBC) Count 2.37 mill/uL (4.70-6.10); White Blood Cell (WBC) Count 13.1 thou/uL (4.8-10.8)
[2021-05-06 04:39] LABS: Carbon Dioxide 34 mmol/L (23-31)
[2021-05-06 04:41] LABS: BUN (Urea Nitrogen) 94 mg/dL (8.4-25.7); Calc. Creatinine Clearance 35 mL/min (70-130)
[2021-05-06 04:42] LABS: Magnesium 2.5 mg/dL (1.6-2.6)
[2021-05-06 05:01] LABS: Phosphorus 5.5 mg/dL (2.3-4.7)
[2021-05-06 05:02] LABS: Anion Gap 12 mmol/L (10-20)
[2021-05-06] MEDS ORDERED: Hydrochlorothiazide 25 MG TAB PO SCH (07:12)
[2021-05-06 08:33] LABS: INR-International Normal Ratio 3.1; Prothrombin Time 32.4 sec (12.0-14.7)
[2021-05-06] MEDS: Ferrous Sulfate 325 MG TAB PO SCH ×2 (08:40→17:24)
[2021-05-06] MEDS ORDERED: Furosemide 80 MG TAB PO SCH (09:00)
[2021-05-06] MEDS: Polyethylene Glycol 3350 17 GM Packet PO SCH (09:31)
[2021-05-06] MEDS: Carvedilol 25 MG TAB PO SCH ×2 (09:32→21:48)
[2021-05-06] MEDS: Famotidine 20 MG TAB PO SCH (09:32)
[2021-05-06] MEDS: Ascorbic Acid 500 mg Chewable Tablet PO SCH ×2 (09:33→21:48)
[2021-05-06] MEDS: Gabapentin 100 MG CAP PO SCH ×3 (09:33→21:43)
[2021-05-06] MEDS: Saccharomyces boulardii 250 MG CAP PO SCH (09:33)
[2021-05-06] MEDS: Senokot S 8.6-50 MG TAB PO SCH ×2 (09:36→21:49)
[2021-05-06] MEDS: Metamucil PACK PER TUBE SCH (09:41)
[2021-05-06] MEDS ORDERED: Metolazone 2.5 MG TAB PO SCH (09:45)
[2021-05-06] MEDS: Sotalol HCl 80 MG TAB PO SCH ×2 (09:46→21:49)
[2021-05-06 14:23] VITALS: BMI 27.1
[2021-05-06] MEDS: Warfarin Sodium 2 MG TAB PO SCH (17:24)
[2021-05-06] MEDS: Tamsulosin HCl 0.4 MG CAP PO SCH (21:48)
[2021-05-06] MEDS: Lidocaine 5% Patch TD SCH (22:27)
[2021-05-07] MEDS: Acetaminophen 325 MG TAB PO SCH ×4 (00:08→17:32)
[2021-05-07] MEDS: Dextrose 5% in Water 1,000 ML IV SCH ×2 (00:12→21:31)
[2021-05-07 03:33] LABS: INR-International Normal Ratio 3.2; Prothrombin Time 33.7 sec (12.0-14.7)
[2021-05-07 04:44] LABS: Band 10 % (5-11); Eosinophils 1 % (0-10); Hemoglobin 9.4 g/dL (14.0-18.0); Lymphocytes 8 % (21-51); MDiff Complete? YES; Mean Corpuscular HGB CONC 33.1 g/dL (32.0-36.0); Mean Corpuscular Volume 96.7 fL (78.0-98.0); Mean Platelet Volume 10.9 fL (7.4-10.4); Monocytes 5 % (0-10); Neutrophil 76 % (42-75); Platelet Count 205 thou/uL (130-400); RBC Distribution Width 14.3 % (11.5-14.5); RBC Morphology Normal; Red Blood Cell (RBC) Count 2.95 mill/uL (4.70-6.10); White Blood Cell (WBC) Count 15.3 thou/uL (4.8-10.8)
[2021-05-07 07:54] LABS: Anion Gap 18 mmol/L (10-20); BUN (Urea Nitrogen) 97 mg/dL (8.4-25.7); Calc. Creatinine Clearance 28 mL/min (70-130); Calcium 8.6 mg/dL (7.8-10.44); Carbon Dioxide 26 mmol/L (23-31); Chloride 109 mmol/L (98-107); Glucose 178 mg/dL (83-110); Magnesium 2.4 mg/dL (1.6-2.6); Phosphorus 6.8 mg/dL (2.3-4.7); Potassium 5.8 mmol/L (3.5-5.1); Sodium 147 mmol/L (136-145)
[2021-05-07 09:15] LABS: Actual Bicarbonate (HCO3a) 36.2 mEq/L (22-28); Base Excess (BEa) 8.4 mEq/L (-2.0 to +3.0); CO2 Tension 74.6 mmHg (35.0-45.0); Calcium, Ionized (arterial) 1.12 mmol/L (1.12-1.30); Carboxyhemoglobin (COHb) 1.1 gm% (0.0-3.0); Hemoglobin (Hb) 8.4 g/dL (14.0-18.0); O2 Tension (PaO2), arterial 88.8 mmHg (> 60.0); Potassium - ABG Lab 4.75 mmol/L (3.70-5.30)
[2021-05-07 09:16] LABS: Puncture Site RBA
[2021-05-07] MEDS: Senokot S 8.6-50 MG TAB PO SCH ×2 (10:45→20:44)
[2021-05-07] MEDS: Sotalol HCl 80 MG TAB PO SCH ×2 (10:47→20:47)
[2021-05-07] MEDS: Ferrous Sulfate 325 MG TAB PO SCH ×2 (10:47→17:31)
[2021-05-07] MEDS: Gabapentin 100 MG CAP PO SCH ×3 (10:48→21:31)
[2021-05-07] MEDS: Ascorbic Acid 500 mg Chewable Tablet PO SCH ×2 (10:48→20:45)
[2021-05-07] MEDS: Carvedilol 25 MG TAB PO SCH ×2 (10:48→20:47)
[2021-05-07] MEDS: Saccharomyces boulardii 250 MG CAP PO SCH (10:49)
[2021-05-07] MEDS: Famotidine 20 MG TAB PO SCH (10:49)
[2021-05-07] MEDS: Metamucil PACK PER TUBE SCH (10:52)
[2021-05-07] MEDS: Polyethylene Glycol 3350 17 GM Packet PO SCH (10:52)
[2021-05-07 11:05] LABS: Actual Bicarbonate (HCO3a) 34.9 mEq/L (22-28); Base Excess (BEa) 7.3 mEq/L (-2.0 to +3.0); Calcium, Ionized (arterial) 1.11 mmol/L (1.12-1.30); Hemoglobin (Hb) 8.8 g/dL (14.0-18.0); O2 Tension (PaO2), arterial 83.8 mmHg (> 60.0); pH, Arterial 7.31 (7.35-7.45)
[2021-05-07 11:06] LABS: ALV-art Gradient 112.775 mmHg (0-20); CO2 Tension 70.9 mmHg (35.0-45.0); Puncture Site RA
[2021-05-07] MEDS ORDERED: Calcium Chloride 13.6 MEQ in Sodium Chloride 0.9% 100 ML IVPB SCH (13:45)
[2021-05-07] MEDS: Lidocaine 5% Patch TD SCH (20:42)
[2021-05-07] MEDS: Morphine 4 MG/ML VIAL SLOW IVP PRN (20:45)
[2021-05-07] MEDS: Tamsulosin HCl 0.4 MG CAP PO SCH (21:31)
[2021-05-08] MEDS: Acetaminophen 325 MG TAB PO SCH ×3 (00:06→12:10)
[2021-05-08] MEDS: Morphine 4 MG/ML VIAL SLOW IVP PRN ×3 (03:05→15:51)
[2021-05-08 04:09] LABS: #Eosinphils 0.4 thou/uL (0.0-0.7); #Lymphocytes 0.9 thou/uL (1.20-3.40); #Monocytes 1.1 thou/uL (0.11-0.59); #Neutrophils 11.7 thou/uL (1.40-6.50); %Basophils 0.1 % (0.0-1.0); %Eosinophils 2.5 % (0.0-10.0); %Monocytes 8.1 % (0.0-10.0); %Neutrophils 83.3 % (42.0-75.0); Hemoglobin 8.4 g/dL (14.0-18.0); Mean Corpuscular HGB CONC 32.2 g/dL (32.0-36.0); Mean Corpuscular Hemoglobin 31.2 pg (27.0-31.0); Mean Corpuscular Volume 96.9 fL (78.0-98.0); Mean Platelet Volume 10.8 fL (7.4-10.4); Platelet Count 236 thou/uL (130-400); Red Blood Cell (RBC) Count 2.68 mill/uL (4.70-6.10); White Blood Cell (WBC) Count 14.1 thou/uL (4.8-10.8)
[2021-05-08 04:21] LABS: INR-International Normal Ratio 3.5; Prothrombin Time 36.2 sec (12.0-14.7)
[2021-05-08 05:04] LABS: Anion Gap 13 mmol/L (10-20); BUN (Urea Nitrogen) 93 mg/dL (8.4-25.7); Calc. Creatinine Clearance 30 mL/min (70-130); Calcium 8.2 mg/dL (7.8-10.44); Carbon Dioxide 32 mmol/L (23-31); Chloride 103 mmol/L (98-107); Glucose 140 mg/dL (83-110); Phosphorus 4.8 mg/dL (2.3-4.7); Potassium 4.3 mmol/L (3.5-5.1); Sodium 144 mmol/L (136-145)
[2021-05-08 05:13] LABS: Magnesium 2.3 mg/dL (1.6-2.6)
[2021-05-08] MEDS: Gabapentin 100 MG CAP PO SCH ×2 (09:32→15:51)
[2021-05-08] MEDS: Saccharomyces boulardii 250 MG CAP PO SCH (09:32)
[2021-05-08] MEDS: Ferrous Sulfate 325 MG TAB PO SCH (09:32)
[2021-05-08] MEDS: Carvedilol 25 MG TAB PO SCH (09:32)
[2021-05-08] MEDS: Ascorbic Acid 500 mg Chewable Tablet PO SCH (09:32)
[2021-05-08] MEDS: Famotidine 20 MG TAB PO SCH (09:32)
[2021-05-08] MEDS: Senokot S 8.6-50 MG TAB PO SCH (09:32)
[2021-05-08] MEDS: Sotalol HCl 80 MG TAB PO SCH (09:33)
[2021-05-08] MEDS: Polyethylene Glycol 3350 17 GM Packet PO SCH (09:33)
[2021-05-08] MEDS: Metamucil PACK PER TUBE SCH (09:34)
[2021-05-08 11:12] VITALS: BP 113/50
[2021-05-08 16:19] VITALS: TEMP 97.9
[2021-05-08] MEDS ORDERED: Warfarin Sodium 3 MG TAB PO SCH (17:00)
== END 2021-05-08 16:20 | disposition hospice, inpatient (51) | DRG 956 ==
LOC: ERS 15:29 → ERHOLD 18:10 → IMCU/EMU 04-26 01:34 → SJJU 04-29 10:52 → CCU 04-30 12:53 → IMCU/EMU 05-06 14:18
PROVIDERS: ADMIT Specialist; ATTEND Surgery
PROC: 30233K1 Transfusion of Nonautologous Frozen Plasma into Peripheral Vein, Percutaneous Approach (ICD-10-PCS; 2021-04-26)
PROC: 0W9930Z Drainage of Right Pleural Cavity with Drainage Device, Percutaneous Approach (ICD-10-PCS; 2021-04-26)
PROC: 0SRR0JA Replacement of Right Hip Joint, Femoral Surface with Synthetic Substitute, Uncemented, Open Approach (ICD-10-PCS; principal; 2021-04-27)
PROC: 5A1955Z Respiratory Ventilation, Greater than 96 Consecutive Hours (ICD-10-PCS; 2021-04-30)
PROC: 0D9670Z Drainage of Stomach with Drainage Device, Via Natural or Artificial Opening (ICD-10-PCS; 2021-04-30)
PROC: 30233N1 Transfusion of Nonautologous Red Blood Cells into Peripheral Vein, Percutaneous Approach (ICD-10-PCS; 2021-05-06)
DX: S72.001A Fracture of unspecified part of neck of right femur, initial encounter for closed fracture (principal); S27.2XXA Traumatic hemopneumothorax, initial encounter; J96.01 Acute respiratory failure with hypoxia; J15.6 Pneumonia due to other Gram-negative bacteria; J96.02 Acute respiratory failure with hypercapnia; S22.41XA Multiple fractures of ribs, right side, initial encounter for closed fracture; S27.321A Contusion of lung, unilateral, initial encounter; D62 Acute posthemorrhagic anemia; D68.32 Hemorrhagic disorder due to extrinsic circulating anticoagulants; N17.9 Acute kidney failure, unspecified; E87.0 Hyperosmolality and hypernatremia; I13.0 Hypertensive heart and chronic kidney disease with heart failure and stage 1 through stage 4 chronic kidney disease, or unspecified chronic kidney disease; Z66 Do not resuscitate; Z51.5 Encounter for palliative care; Z20.822 Contact with and (suspected) exposure to COVID-19; S00.83XA Contusion of other part of head, initial encounter; I50.9 Heart failure, unspecified; Z96.653 Presence of artificial knee joint, bilateral; T45.515A Adverse effect of anticoagulants, initial encounter; E78.5 Hyperlipidemia, unspecified; E66.9 Obesity, unspecified; N18.9 Chronic kidney disease, unspecified; E87.6 Hypokalemia; E83.39 Other disorders of phosphorus metabolism; Z87.442 Personal history of urinary calculi; Z98.890 Other specified postprocedural states; Z85.46 Personal history of malignant neoplasm of prostate; Z95.0 Presence of cardiac pacemaker; Z79.01 Long term (current) use of anticoagulants; Z79.899 Other long term (current) drug therapy; W01.198A Fall on same level from slipping, tripping and stumbling with subsequent striking against other object, initial encounter; Y93.01 Activity, walking, marching and hiking; Y92.481 Parking lot as the place of occurrence of the external cause; Z68.27 Body mass index [BMI] 27.0-27.9, adult
CPT/HCPCS: 36415; 36430; 36600; 70450; 71045; 71260; 72125; 72170; 74018; 74177; 80048; 80053; 81001; 82533; 82805; 83735; 83880; 84100; 84484; 85025; 85610; 85730; 86850; 86900; 86901; 87070; 87077; 87086; 87186; 87205; 93005; 93306; 94002; 94003; 94640; 94660; 96374; 96375; 96376; G0390; J0690; J0692; J1100; J1265; J1650; J1720; J1885; J1940; J2001; J2270; J2405; J2704; J3010; J3430; J3490; J7050; J7070; J7620; P9016; P9047; P9059; Q9967; U0002; U0003; U0005

== ENCOUNTER 2021-05-08 16:32 | Inpatient (IN) | payer OTHER ==
[2021-05-08] MEDS ORDERED: Lorazepam 2 MG/ML VIAL SLOW IVP PRN (16:46)
[2021-05-08] MEDS ORDERED: Morphine 4 MG/ML VIAL SLOW IVP PRN (16:47)
[2021-05-08] MEDS: Morphine 4 MG/ML VIAL SLOW IVP SCH ×3 (17:13→21:36)
[2021-05-08] MEDS ORDERED: Atropine Sulfate 1% Ophth Soln 5 ml Bottle PO PRN (17:15)
[2021-05-08] MEDS ORDERED: Scopolamine 1.5 mg/72 hour Patch TOP PRN ×2 (17:15)
[2021-05-08 23:17] VITALS: BP 91/52; TEMP 95.7
[2021-05-09] MEDS: Morphine 4 MG/ML VIAL SLOW IVP SCH ×2 (00:05→01:56)
== END 2021-05-09 05:25 | disposition expired | DRG 951 ==
LOC: IMCU/EMU 16:32 → ONC 21:20
PROVIDERS: ADMIT Family Medicine; ATTEND Family Medicine
DX: Z51.5 Encounter for palliative care (principal); Z66 Do not resuscitate; S72.001A Fracture of unspecified part of neck of right femur, initial encounter for closed fracture; S27.2XXA Traumatic hemopneumothorax, initial encounter; S22.41XA Multiple fractures of ribs, right side, initial encounter for closed fracture; S27.321A Contusion of lung, unilateral, initial encounter; I50.9 Heart failure, unspecified; W18.39XA Other fall on same level, initial encounter; Y92.524 Gas station as the place of occurrence of the external cause; Z95.0 Presence of cardiac pacemaker; Z79.01 Long term (current) use of anticoagulants
CPT/HCPCS: J2060; J2270